=== PATIENT | female | born 1995 | race Caucasian/White ===

== ENCOUNTER 2016-12-02 23:13 | Emergency (ER) | payer BC ==
[~2016-12-02] VITALS: Ht 175.3 cm; Wt 65.9 kg
[2016-12-02 23:21] VITALS: TEMP 37.1; Ht 175.3 cm; Wt 65.9 kg
[2016-12-02] MEDS ORDERED: SODIUM CHLORIDE 0.9% 1000ML 1,000 ML IV STA (23:35)
[2016-12-02] MEDS ORDERED: SERT-234 PO (23:41)
[2016-12-02] MEDS ORDERED: CRY28 PO (23:41)
[2016-12-02] MEDS ORDERED: PANTOprazole INJ 40 MG in SYRINGE 0 ML IV ONE (23:45)
[2016-12-02] MEDS ORDERED: GI COCKTAIL PO ONE (23:45)
[2016-12-03] MEDS ORDERED: ALUMINUM/MAGNESIUM SUSP 30 ML UDC ONE
[2016-12-03] MEDS ORDERED: LIDOCAINE HCL 2% VISC SOLN 20 ML UDC ONE
[2016-12-03 00:16] LABS: BASO % 0.4 %; BASO ABS # 0.04 K/uL (0-0.2); COMPLETE YES; EOS % 2.3 %; HEMATOCRIT 41.1 % (37-47); IG% 0.2 %; LYMPH % 29.4 %; LYMPH ABS # 2.69 K/uL (1.2-3.4); MEAN CELL VOLUME 89.3 fL (80-100); MEAN CORPUSCULAR HEMOGLOBIN 30.9 pg (25-34); MEAN CORPUSCULAR HGB CONC 34.5 g/dl (32-36); MEAN PLATELET VOLUME 10.4 fL (7.4-10.4); MONO % 8.3 %; NEUT % 59.4 %; PLATELET COUNT 247 K/uL (130-400); WHITE BLOOD COUNT 9.16 K/uL (4.8-10.8)
[2016-12-03 00:30] LABS: URINE APPEARANCE CLOUDY (CLEAR); URINE BILIRUBIN NEG (NEG); URINE COLOR YELLOW; URINE NITRITE NEG (NEG); URINE PH 7.5 (4.5-7.5); URINE SPECIFIC GRAVITY 1.016 (1.000-1.030); UROBILINOGEN NEG (NEG); ZZUR CULT IF INDIC CLEAN CATCH NO
[2016-12-03 00:30] LABS: CALCIUM 9.4 mg/dl (8.5-10.1); CREATININE 0.92 mg/dl (0.60-1.20); POTASSIUM 3.8 mmol/L (3.5-5.1)
[2016-12-03 00:31] LABS: MANUAL MICROSCOPIC REQUIRED? NO; REVIEW REQ? NO
[2016-12-03] MEDS ORDERED: SODIUM CHLORIDE 0.9% 1000ML 1,000 ML IV STA (00:38)
[2016-12-03] MEDS ORDERED: OPTIRAY 320 IV PRN (01:00)
[2016-12-03 02:10] VITALS: BP 122/70; PULSE 82; O2SAT 99
[2016-12-03] MEDS ORDERED: HYDR-5688 PO (02:25)
--- NOTE | 2016-12-03 02:28 | EMERGENCY ROOM VISIT NOTE ---
History First contact with patient: 23:27 Chief Complaint: ABDOMINAL PAIN Stated Complaint: ABD PAIN Nursing Triage Summary: c/o mid upper abdominal pain for 3+ days. Pain increases with deep breaths & movement. Denies any nausea, vomitting or diarrhea. Reports last BM was 12/02 and was regular. Rates pain #4-5 at this time. History of Present Illness The patient is a 21 year old female who presents to the Emergency Department by private vehicle for evaluation of her epigastric abdominal discomfort. She reports that she noticed the pain started on Friday evening while bowling and shortly after eating pizza. She doesn't to drinking alcohol this weekend, but she does not feel like it was more than usual. She reports associated nausea but no vomiting. Her pain is independent of food products. She is had a decreased appetite secondary to discomfort. She reports pain with movement as well as palpation and deep inspiration. She reports no history of similar symptoms. The patient only takes oral contraception. She rates her current discomfort as a 6/10. She is tried nothing [id number] for her symptoms. She denies any fevers, chills, headaches, dizziness, light headedness, chest pain, palpitations, shortness of breath, hemoptysis, lower abdominal pain, hematochezia, melena, hematuria, or dysuria. She denies any chance for . Review of Systems A complete 10-point Review of Systems was discussed with the patient, with pertinent positives and negatives listed in the History of Present Illness. All remaining Review of Systems questions can be considered negative unless otherwise specified. Social History Smoking Status: Never Smoker Smokeless Tobacco Use: No Alcohol Use: occasionally Drug Use: none Marital Status: single Housing Status: lives with roommate Occupation Status: [employer] Current/Historical Medications Scheduled Ethinyl Estradiol/Norgestrel ([place]-28), 1 TAB PO DAILY Sertraline (Zoloft), 150 MG PO DAILY Scheduled PRN Hydrocodone/Acetaminophen 5MG/325MG ([place] 5MG/325MG), 1-2 TABLET PO Q4H PRN for Pain Allergies Coded Allergies: No Known Allergies (Unverified , 12/02/16) Physical Exam Vital Signs Date Time Temp Pulse Resp B/P Pulse Ox O2 Delivery O2 Flow Rate FiO2 12/03/16 02:10 82 18 122/70 99 Room Air 12/02/16 23:21 37.1 92 18 121/81 98 Room Air Pain Rating (0-10): 6 Physical Exam VITAL SIGNS - Vital signs and nursing notes were reviewed. GENERAL - 21-year-old female appearing her stated age who is in no acute distress. Communicates well with provider and answers questions appropriately. LUNGS - Chest wall symmetric without accessory muscle use, intercostals retractions, or central cyanosis. Normal vesicular breath sounds CTA B/L. No wheezes, rales, or rhonchi appreciated. CARDIAC - RRR with S1/S2. No murmur, rubs, or gallops appreciated. ABDOMEN - Abdominal contour flat and without pulsations or visible masses. BS normoactive all four quadrants. Mild tenderness to palpation appreciated in the epigastrium. No guarding. No Rebound Tenderness. Negative Rovsing's. Negative Foster's. No palpable masses, hepatosplenomegaly, or ascites noted. EXTREMITIES - No clubbing or peripheral cyanosis. No pretibial edema present. +3 /5 radial and dorsalis pedis pulses palpated throughout. PSYCH - A&Ox3 and cooperates fully with examiner. Pt is very pleasant and interacts well with examiner. Medical Decision & Procedures ER Provider Diagnostic Interpretation: Radiological imaging and reports were reviewed by myself. Radiologist's Interpretation per [facility] as follows: CT ABDOMEN & PELVIS: Possibly trace peripancreatic stranding. Correlate with amylase or lipase values. No pseudocyst. No radiodense gallstones. Appendix not identified. Small amount of fluid in the pelvis. Small nodule in the left lung base. US RUQ: Under distended/contracted gallbladder with apparent thickening of the wall. No gallstones. No biliary ductal dilatation. Negative sonographic Foster sign Limited visualization of the pancreas. Laboratory Results 12/02/16 23:55 Red Blood Count 4.60, Mean Corpuscular Volume 89.3, Mean Corpuscular Hemoglobin 30.9, Mean Corpuscular Hemoglobin Concent 34.5, Mean Platelet Volume 10.4, Neutrophils (%) (Auto) 59.4, Lymphocytes (%) (Auto) 29.4, Monocytes (%) (Auto) 8.3, Eosinophils (%) (Auto) 2.3, Basophils (%) (Auto) 0.4, Neutrophils # (Auto) 5.44, Lymphocytes # (Auto) 2.69, Monocytes # (Auto) 0.76, Eosinophils # (Auto) 0.21, Basophils # (Auto) 0.04 12/02/16 23:55 Test 12/02/16 23:55 12/03/16 00:14 White Blood Count 9.16 K/uL (4.8-10.8) Red Blood Count 4.60 M/uL (4.2-5.4) Hemoglobin 14.2 g/dL (12.0-16.0) Hematocrit 41.1 % (37-47) Mean Corpuscular Volume 89.3 fL (80-100) Mean Corpuscular Hemoglobin 30.9 pg (25-34) Mean Corpuscular Hemoglobin Concent 34.5 g/dl (32-36) Platelet Count 247 K/uL (130-400) Mean Platelet Volume 10.4 fL (7.4-10.4) Neutrophils (%) (Auto) 59.4 % Lymphocytes (%) (Auto) 29.4 % Monocytes (%) (Auto) 8.3 % Eosinophils (%) (Auto) 2.3 % Basophils (%) (Auto) 0.4 % Neutrophils # (Auto) 5.44 K/uL (1.4-6.5) Lymphocytes # (Auto) 2.69 K/uL (1.2-3.4) Monocytes # (Auto) 0.76 K/uL (0.11-0.59) Eosinophils # (Auto) 0.21 K/uL (0-0.5) Basophils # (Auto) 0.04 K/uL (0-0.2) RDW Standard Deviation 45.7 fL (36.4-46.3) RDW Coefficient of Variation 14.0 % (11.5-14.5) Immature Granulocyte % (Auto) 0.2 % Immature Granulocyte # (Auto) 0.02 K/uL (0.00-0.02) Anion Gap 4.0 mmol/L (3-11) Est Creatinine Clear Calc Drug Dose 98.9 ml/min Estimated GFR () 101.7 Estimated GFR (Non- 87.8 BUN/Creatinine Ratio 18.0 (10-20) Calcium Level 9.4 mg/dl (8.5-10.1) Magnesium Level 2.0 mg/dl (1.8-2.4) Total Bilirubin 0.2 mg/dl (0.2-1) Aspartate Amino Transf (AST/SGOT) 21 U/L (15-37) Alanine Aminotransferase (ALT/SGPT) 14 U/L (12-78) Alkaline Phosphatase 84 U/L (45-117) Total Protein 7.1 gm/dl (6.4-8.2) Albumin 3.6 gm/dl (3.4-5.0) Globulin 3.5 gm/dl (2.5-4.0) Albumin/Globulin Ratio 1.0 (0.9-2) Lipase 8077 U/L (73-393) Urine Color YELLOW Urine Appearance CLOUDY (CLEAR) Urine pH 7.5 (4.5-7.5) Urine Specific [place] 1.016 (1.000-1.030) Urine Protein NEG (NEG) Urine Glucose (UA) NEG (NEG) Urine Ketones NEG (NEG) Urine Occult Blood NEG (NEG) Urine Nitrite NEG (NEG) Urine Bilirubin NEG (NEG) Urine Urobilinogen NEG (NEG) Urine Leukocyte Esterase NEG (NEG) Urine WBC (Auto) 1-5 /hpf (0-5) Urine RBC (Auto) 0-4 /hpf (0-4) Urine Hyaline Casts (Auto) 0 /lpf (0-5) Urine Epithelial Cells (Auto) 10-20 /lpf (0-5) Urine Bacteria (Auto) NEG (NEG) Medications Administered Medications (Trade) Dose Ordered Sig/[place] Route Start Time Stop Time Status Last Admin Dose Admin Sodium Chloride 1,000 ml @ 999 mls/hr Q1H1M STAT IV 12/02/16 23:35 12/03/16 00:35 DC 12/03/16 00:11 999 MLS/HR Pantoprazole Sodium/Syringe (Protonix Inj/ Syringe) 10 ml @ 5 mls/min NOW ONCE IV 12/02/16 23:45 12/02/16 23:46 DC 12/03/16 00:08 5 MLS/MIN Lidocaine HCl (Viscous Lidocaine 2% Soln) 20 ml STK-MED ONCE .ROUTE 12/03/16 00:00 12/03/16 00:03 DC 12/03/16 00:07 20 ML Al Hydroxide/Mg Hydroxide 30 ml 30 ml STK-MED ONCE .ROUTE 12/03/16 00:00 12/03/16 00:03 DC 12/03/16 00:06 30 ML Sodium Chloride (Nss 1000ml) 1,000 ml @ 125 mls/hr Q8H STAT IV 12/03/16 00:38 12/03/16 02:52 DC 12/03/16 01:00 125 MLS/HR Acetaminophen/ Hydrocodone Bitart ([place] 5/325mg Home Pack) 1 [facility] UD ONCE PO 12/03/16 02:30 12/03/16 02:31 DC 12/03/16 02:35 1 HOMEPACK ED Course Patient was seen and evaluated by myself. Labs were drawn, saline lock in place. The patient was hydrated with a 1000 mL normal saline bolus. She was treated with IV Protonix as well as a GI cocktail. Laboratory results demonstrate no acute leukocytosis, worrisome anemia, or bandemia. The patient has no significant electrolyte abnormalities. There is no acute hepatitis. Lipase was found to be significantly elevated at 8077. Urinalysis is otherwise unremarkable. The patient was hydrated with an additional 1000 mL of normal saline. The patient was reevaluated and resting comfortably. Ultrasound of the gallbladder area and CT of the abdomen and pelvis was obtained. Imaging results above. Laboratory results and imaging studies were reviewed with the patient who acknowledges understanding. The case was discussed with my attending physician who agrees with the diagnostic approach and treatment plan. The patient was offered admission versus outpatient management with close follow-up with GI. She declines admission at this time. I did speak with case management who work on establishing the patient in outpatient appointment with gastroenterology. The patient was educated on a clear liquid diet. She was provided [place] for breakthrough pain at home. She was educated on worrisome symptoms for return visit to the emergency department. Patient discharged home afebrile and in good condition. Medical Decision Given the patient's presentation and stated complaints, I did elect to perform the above-mentioned workup. The patient presents today with epigastric abdominal discomfort. She has no fever leukocytosis. She has minimal tenderness to palpation in the epigastrium. Her labs are unremarkable except for an elevated lipase level. Because of this, I did proceed with imaging studies to rule out possible biliary ductal stone or other acute pathology contributing to her symptomatology. Imaging studies confirm pancreatitis with no other significant findings. The patient was copiously hydrated the emergency setting. She declines anything for pain. Patient declines admission and would rather follow closely with gastroenterology. I feel that given the patient's benign presentation and unremarkable exam, this certainly is an appropriate option. She was provided [place] for breakthrough pain. Case management work on establishing a follow-up appointment with gastroenterology. The patient was educated on worrisome symptoms for return visit to the emergency department. Patient discharged home afebrile and in good condition. In the evaluation and treatment of this patient, the following differential diagnoses were considered: Gastritis, alcoholic gastritis, gastroenteritis, duodenitis, PUD, retrocecal appendicitis, basilar PE, basilar pneumonia, ACS, [place] , amongst others. Impression Primary Impression: Pancreatitis Departure Information Dispostion Home / Self-Care Condition GOOD Prescriptions Hydrocodone/Acetaminophen 5MG/325MG ([place] 5MG/325MG) Tab 1-2 TABLET PO Q4H Y for Pain, #24 TAB For Initial Treatment Prov: Macario Raines PA-C 12/03/16 Referrals No Doctor, Assigned (PCP) Patient Instructions ED Diet Clear Liquid, ED Pancreatitis, [facility] Additional Instructions You have been treated in the Emergency Department your Abdominal Pain - Pancreatitis. You NEED to follow-up with gastroenterology for ongoing management of your pancreatitis. Exercise a clear liquid diet as discussed. You have been prescribed [place] to be used for pain control. This is a narcotic medication. You cannot drive or consume alcohol while on this medicine. This medicine should only be used for pain that cannot be controlled with over-the- counter pain medicines. For pain control, you can use the following ijxh-mxr-[id number] medicines (if >12 yo): - Regular strength (325mg/tab) Tylenol (acetaminophen) 2 tabs every 4-6 hours as needed. Do not exceed 12 tablets in a 24 hour period. Avoid taking more than 4 grams (4000 mg) of Tylenol per day. This includes any other sources of acetaminophen you may take on a regular basis. - Regular strength (200 mg/tab) Advil (ibuprofen) 1-2 tabs every 4-6 hours as needed. Do not exceed a dose of 3200 mg per day. Drink plenty of water and stay well hydrated. As with any trip to the Emergency Department, you should follow-up with your Primary Care Provider from today's visit. Return to the emergency department if your symptoms persist despite treatment plan outlined above or if the following symptoms occur: increased fevers, chills , worsening nausea/vomiting, blood in your stool or urine. Problem Qualifiers Primary Impression: Pancreatitis Chronicity: acute Pancreatitis type: unspecified pancreatitis type Acute pancreatitis complication: unspecified Qualified Codes: K85.90 - Acute pancreatitis without necrosis or infection, unspecified
[2016-12-03] MEDS ORDERED: NORCO 5/325MG HOME PACK PO ONE (02:30)
--- NOTE | 2016-12-03 07:07 | DIAGNOSTIC IMAGING REPORT ---
ABDOMEN AND PELVIS CT WITH IV CONTRAST CT DOSE: 287.79 mGy.cm HISTORY: Abdominal pain abd pain - pancreatitis TECHNIQUE: Multiaxial CT images of the abdomen and pelvis were performed following the use of intravenous contrast. COMPARISON STUDY: None. FINDINGS: Lung bases are clear. Gallbladder is moderately contracted. Liver is uniform throughout. Spleen is unremarkable. Slight degree of pancreatic edema with a trace amount of peripancreatic infiltrative change. No evidence for abscess or collection. Bowel pattern is nonobstructive. Small amount of free fluid within the pelvic cul-de-sac. This may be physiologic. IMPRESSION: Minimal pancreatitis. No evidence for abscess collection or obstruction. Electronically signed by: Amador Mendiola M.D. 12/03/2016 7:05 AM Dictated Date/Time: 12/03/2016 7:02 AM
--- NOTE | 2016-12-03 07:08 | DIAGNOSTIC IMAGING REPORT ---
Right upper quadrant ultrasound GALLBLADDER-ABD LIMITED CLINICAL HISTORY: abd pain - pancreatitis TECHNIQUE: Ultrasound COMPARISON STUDY: CT same date FINDINGS: Contracted gallbladder. No shadowing gallstones. The ductal system is normal in appearance. Poor visualization of the pancreas due to overlying bowel content. Liver is unremarkable. IMPRESSION: Poor visualization of the pancreas due to overlying bowel content. Contracted gallbladder. Otherwise negative study Electronically signed by: Amador Mendiola M.D. 12/03/2016 7:07 AM Dictated Date/Time: 12/03/2016 7:06 AM
[2016-12-24] MEDS ORDERED: VALA500T60 PO (14:52)
[2017-01-02] MEDS ORDERED: HYDR-5688 PO (08:36)
== END 2016-12-03 02:35 | disposition home or self-care (01) ==
LOC: C.EDB 23:14 → C.EDC 12-03 02:35
DX: K85.90 Acute pancreatitis without necrosis or infection, unspecified (principal)

== ENCOUNTER → 2016-12-09 | Outpatient (CLI) | payer BC ==
[~2016-12-09] MED LIST: CRY28 PO; HYDR-5688 PO; SERT-234 PO; VALA500T60 PO
[2016-12-09 17:19] LABS: BASO % 0.3 %; BASO ABS # 0.02 K/uL (0-0.2); COMPLETE YES; EOS % 1.5 %; HEMATOCRIT 41.7 % (37-47); IG% 0.1 %; LYMPH % 27.5 %; LYMPH ABS # 2.04 K/uL (1.2-3.4); MEAN CELL VOLUME 89.3 fL (80-100); MEAN CORPUSCULAR HGB CONC 34.8 g/dl (32-36); MEAN PLATELET VOLUME 10.5 fL (7.4-10.4); MONO % 6.6 %; PLATELET COUNT 287 K/uL (130-400); RED BLOOD COUNT 4.67 M/uL (4.2-5.4); WHITE BLOOD COUNT 7.42 K/uL (4.8-10.8)
[2016-12-09 17:31] LABS: ALT/SGPT 17 U/L (12-78); AMYLASE 151 U/L (25-115); AST/SGOT 16 U/L (15-37); BLOOD UREA NITROGEN 7 mg/dl (7-18); BUN/CREATININE RATIO 7.6 (10-20); CALCIUM 9.1 mg/dl (8.5-10.1); CARBON DIOXIDE 26 mmol/L (21-32); CHLORIDE 105 mmol/L (98-107); CREATININE 0.91 mg/dl (0.60-1.20); GLUCOSE 75 mg/dl (70-99); POTASSIUM 3.5 mmol/L (3.5-5.1); SODIUM 141 mmol/L (136-145)
[2016-12-09 17:34] LABS: ALB/GLOB RATIO 1.1 (0.9-2); ALKALINE PHOSPHATASE 77 U/L (45-117)
[2016-12-12 16:33] LABS: IGA SERUM 100 mg/dL (81-463); TIS TRANS IGA 1 U/mL (<4)
== END | disposition home or self-care (01) ==
LOC: C.LAB1850 16:06
PROVIDERS: ATTEND Registered Nurse
DX: K85.90 Acute pancreatitis without necrosis or infection, unspecified (principal); R11.0 Nausea

== ENCOUNTER → 2016-12-13 | Outpatient (CLI) | payer BC ==
[~2016-12-13] MED LIST changes: +SINCALIDE INJ 1.3 MCG in SODIUM CHLORIDE 0.9% 100ML 100 ML IV ONE
--- NOTE | 2016-12-13 13:40 | DIAGNOSTIC IMAGING REPORT ---
NUCLEAR HEPATOBILIARY SCAN WITH EJECTION FRACTION IMAGING CLINICAL HISTORY: Right upper quadrant abdominal pain. Pancreatitis. COMPARISON STUDY: Abdominal ultrasound dated 12/03/2016. TECHNIQUE: Dynamic images of the liver and anterior abdomen were obtained every 5 minutes for a total of 60 minutes following the IV administration of 5.3mCi of technetium 99m Choletec. 1.3 mcg of sincalide was then injected with additional images acquired every 5 minutes for 45 minutes to calculate the gallbladder ejection fraction. FINDINGS: The hepatobiliary scan shows prompt and homogeneous hepatic uptake. There is visualized activity within the intra and extrahepatic biliary tree at 10 minutes, and within the gallbladder at 20 minutes. There is normal biliary to bowel transit, with small bowel visualized by 20 minutes. On the sincalide imaging, the gallbladder ejection fraction was measured at 22%. IMPRESSION: 1. There is no scintigraphic evidence of cholecystitis. 2. The gallbladder ejection fraction measured 22% . Normal is considered greater than 35%, and this suggests gallbladder dysfunctional. Electronically signed by: Deshaun Strickland M.D. 12/13/2016 1:39 PM Dictated Date/Time: 12/13/2016 1:36 PM
== END | disposition home or self-care (01) ==
LOC: C.NUCL 10:15
PROVIDERS: ATTEND Registered Nurse
DX: K85.90 Acute pancreatitis without necrosis or infection, unspecified (principal); R10.13 Epigastric pain; R11.0 Nausea

== ENCOUNTER → 2016-12-16 | Outpatient (CLI) | payer BC ==
[~2016-12-16] MED LIST changes: -SINCALIDE INJ 1.3 MCG in SODIUM CHLORIDE 0.9% 100ML 100 ML IV ONE
[2016-12-16 16:24] LABS: ALKALINE PHOSPHATASE 70 U/L (45-117); ALT/SGPT 14 U/L (12-78); AMYLASE 142 U/L (25-115); AST/SGOT 18 U/L (15-37)
== END | disposition home or self-care (01) ==
LOC: C.LAB1850 14:45
PROVIDERS: ATTEND Registered Nurse
DX: K85.90 Acute pancreatitis without necrosis or infection, unspecified (principal)

== ENCOUNTER → 2016-12-23 | Outpatient (CLI) | payer BC | END | disposition home or self-care (01) | LOC: C.LAB1850 16:46 | PROVIDERS: ATTEND Registered Nurse | DX: K85.90 Acute pancreatitis without necrosis or infection, unspecified (principal); K82.8 Other specified diseases of gallbladder ==

== ENCOUNTER 2017-01-02 07:21 | Day surgery (SDC) | payer BC ==
[~2017-01-02] VITALS: Ht 175.3 cm; Wt 62.3 kg
[~2017-01-02 07:21] MED LIST changes: +CEFAZOLIN 2000 MG/60 ML D5W IV SCH; -HYDR-5688 PO; +LACTATED RINGER'S 1000ML 1,000 ML IV SCH
[2017-01-02 07:37] VITALS: BP 122/79; PULSE 102; TEMP 37.4; O2SAT 100; Ht 175.3 cm; Wt 62.3 kg
[2017-01-02] MEDS ORDERED: DEXAMETHASONE SOD INJ 4 MG/ML VIAL ONE (07:54)
[2017-01-02] MEDS ORDERED: GLYCOPYRROLATE INJ 0.2 MG/ML VIAL ONE (07:54)
[2017-01-02] MEDS ORDERED: PROPOFOL IV EMULSION 10 MG/ML 20 ML VIAL IV ONE (07:54)
[2017-01-02] MEDS ORDERED: PHENYLEPHRINE HCL INJ 10 MG/ML VIAL ONE ×2 (07:54→09:43)
[2017-01-02] MEDS ORDERED: MIDAZOLAM HCL 1 MG/ML 2ML VIAL ONE (07:54)
[2017-01-02] MEDS ORDERED: FENTANYL CITRATE INJ 50 MCG/1 ML 2 ML VIAL ONE ×2 (07:54→09:56)
[2017-01-02] MEDS ORDERED: ONDANSETRON INJ 2 MG/ML 2 ML VIAL ONE (07:54)
[2017-01-02] MEDS ORDERED: SUCCINYLCHOLINE CHLORIDE 20 MG/ML 10 ML VIAL IV ONE (07:54)
[2017-01-02] MEDS ORDERED: ROCURONIUM BROMIDE 10 MG/ML 5 ML VIAL ONE (07:54)
[2017-01-02] MEDS ORDERED: LIDOCAINE HCL 2% 2 ML VIAL (20MG/ML) ONE (07:54)
[2017-01-02] MEDS ORDERED: EpHEDrine SULFATE INJ 50 MG/ML AMP ONE (07:54)
[2017-01-02] MEDS ORDERED: NEOSTIGMINE METHYLSULFATE 5 MG/5 ML SYR ONE (07:54)
[2017-01-02 08:14] LABS: PREG INTERNAL NEGATIVE QC NEG CLEAR BACKGROUND; PREG INTERNAL POSITIVE QC POS CONTROL LINE
[2017-01-02] MEDS ORDERED: NURSING VERBAL MED ORDER ONE (08:15)
[2017-01-02] MEDS ORDERED: SCOPOLAMINE 1.5 MG TDSY TD ONE (08:16)
--- NOTE | 2017-01-02 08:35 | History & Physical Bridge Note ---
H&P Re-Evaluation Bridge Note: I have examined the patient, reviewed the History & Physical and in the interval since the performance of the History & Physical I have noted the following changes of clinical significance: No changes noted
[2017-01-02] MEDS ORDERED: HYDR-5688 PO (08:36)
--- NOTE | 2017-01-02 08:38 | Discharge Instructions ---
Discharge Instructions Date of Service Jan 02, 2017. Admission Reason for Admission: Biliary Dyskinesia Discharge Discharge Diagnosis / Problem: same Discharge Goals Goal(s): Decrease discomfort, Prevent Disease Progression Activity Recommendations Activity Limitations: as noted below Exercise/Sports Limitations: until after follow-up appointment May Resume Sexual Activity: after follow-up appointment Shower/Bathe: tomorrow . Instructions / Follow-Up Instructions / Follow-Up call [phone] for f/u appointment with dr. toure in 2 weeks or if you have any problems/questions. Current Hospital Diet Patient's current hospital diet: Discharge Diet Recommended Diet: Regular Diet Procedures Procedures Performed: lap sheyla Pending Studies Studies pending at discharge: yes List of pending studies: path report Medical Emergencies . Who to Call and When: Medical Emergencies: If at any time you feel your situation is an emergency, please call 911 immediately. . Non-Emergent Contact Non-Emergency issues call your: Primary Care Provider, Surgeon Call Non-Emergent contact if: temperature is above 101, wound has increased drainage, wound has increased redness, wound has increased pain . "Provider Documentation" section prepared by Daniel Toure. VTE Core Measure Inpt VTE Proph given/why not?: SCD's
[2017-01-02] MEDS ORDERED: BUPIVACAINE/EPINEPHRINE 0.5% MPF 1:200,000 30 ML VIAL ONE (08:51)
[2017-01-02] MEDS ORDERED: ATROPINE SULFATE 0.1 MG/ML 5ML SYR IV PRN (09:00)
[2017-01-02] MEDS ORDERED: FENTANYL CITRATE INJ 50 MCG/1 ML 2 ML VIAL IV PRN (09:00)
[2017-01-02] MEDS ORDERED: ONDANSETRON INJ 2 MG/ML 2 ML VIAL IV PRN ×2 (09:00→10:30)
[2017-01-02] MEDS ORDERED: EpHEDrine SULFATE INJ 50 MG/ML AMP IV PRN (09:00)
[2017-01-02] MEDS ORDERED: SODIUM CHLORIDE 0.9% 1000ML 1,000 ML IV SCH (10:19)
--- NOTE | 2017-01-02 10:21 | [facility] Operative Report ---
Operative Report Operative Date Jan 02, 2017. Pre-Operative Diagnosis biliary dyskinesia Post-Operative Diagnosis same Procedure(s) Performed lap sheyla Surgeon sharri Findings essentially normal appearing anatomy Specimens gallbladder Anesthesia get Complication(s) None Disposition Recovery Room / PACU I attest to the content of the Intraoperative Record and any orders documented therein. Any exceptions are noted below.
[2017-01-02] MEDS ORDERED: KETOROLAC TROMETHAMINE 30 MG/ML VIAL IV. PRN (10:30)
[2017-01-02] MEDS ORDERED: IBUPROFEN 600 MG TAB PO PRN (10:30)
[2017-01-02] MEDS ORDERED: HYDROCODONE/ACETAMOPHEN 5/325MG TAB PO PRN ×2 (10:30)
[2017-01-02 10:55] VITALS: BP 100/55; PULSE 82; TEMP 37.2; O2SAT 99
[2017-01-02 11:25] VITALS: BP 101/59; PULSE 77; O2SAT 97
[2017-01-02 11:55] VITALS: BP 102/66; PULSE 70; TEMP 37.1; O2SAT 97
[2017-01-02 12:00] VITALS: BP 108/63; PULSE 72; TEMP 37; O2SAT 97
--- NOTE | 2017-01-02 12:18 | OPERATIVE REPORT ---
DATE OF OPERATION: 01/02/2017 PREOPERATIVE DIAGNOSIS: Biliary dyskinesia. POSTOPERATIVE DIAGNOSIS: Same. PROCEDURE: Laparoscopic cholecystectomy. SURGEON: Dr. Toure. ESTIMATED BLOOD LOSS: Approximately 10 mL. COMPLICATIONS: No immediate. ANESTHESIA: General. The patient tolerated the procedure well. OPERATIVE NOTE: After informed consent was obtained, the patient was taken to the operating suite, placed in supine position. After successful intubation, the abdomen was sterilely prepped and draped in usual fashion. A periumbilical incision made with an 11 blade scalpel and carried down through the soft tissue using electrocautery. Anterior rectus fascia was opened using electrocautery and two #0 Vicryl stay sutures were placed. Peritoneum was elevated with hemostats and incised under direct vision. A finger sweep was performed. A 12 mm Griffin trocar was placed. The abdomen was insufflated to 18 mmHg. Laparoscope was inserted and the abdomen examined 360 degrees. A subxiphoid 5 mm port and 2 right upper quadrant 5 mm ports were placed under direct vision. The patient was placed in reverse Trendelenburg position slightly airplaned to the left. Her anatomy all looked normal. There was no hiatal hernia. Liver looked normal. Peritoneal surfaces did not show any endometriosis, etc. There was no evidence of any hernias. We did grasp the gallbladder and elevate it superiorly and laterally. A [place] dissector was used to open the peritoneal reflection of the neck of the gallbladder. I was then able to skeletonize the cystic duct. I clipped it twice proximally and once distally and transected it. In similar fashion, the cystic artery was identified, skeletonized, clipped and divided. The gallbladder was removed from the gallbladder fossa intact using an electrocautery. A couple of bleeding points in the gallbladder fossa were controlled using electrocautery. Irrigation was performed. At the end of the procedure, there was adequate hemostasis and no evidence of a bile leak, was placed into an EndoCatch bag and removed from the camera port site. Final look around the abdomen showed no other abnormalities. We removed all the trocars and desufflated the abdomen. The fascia of the camera port was closed using 0 Vicryl in a [id number]-[id number] fashion. All the wounds were irrigated and closed using 4-0 Monocryl. Marcaine was injected around the incisions for postoperative analgesia and skin glue used as a dressing. The patient was awakened, extubated, and transferred to recovery in stable condition. I attest to the content of the Intraoperative Record and any orders documented therein. Any exceptio ns are noted below.
[2017-01-02 12:30] VITALS: BP 103/59; PULSE 71; TEMP 37.1; O2SAT 97
--- NOTE | 2017-01-02 14:00 | Anesthesiology Progress Note ---
Anesthesia Post Op Note Date & Time Jan 02, 2017 at 14:01 Vital Signs Pain Intensity: 0 Vital Signs Past 12 Hours Date Time Temp Pulse Resp B/P Pulse Ox O2 Delivery O2 Flow Rate FiO2 01/02/17 11:25 77 18 101/59 97 Room Air 01/02/17 10:55 37.2 82 18 100/55 99 Room Air 01/02/17 10:50 36.6 88 16 115/74 98 Room Air 01/02/17 10:40 80 16 118/59 99 Room Air 01/02/17 10:30 83 16 120/67 99 Room Air 01/02/17 10:20 97 16 131/70 100 Mask 10 01/02/17 10:13 36.7 103 16 138/74 100 Mask 10 01/02/17 07:37 37.4 102 16 122/79 100 Room Air Notes Mental Status: alert / awake / arousable, participated in evaluation Pt Amnestic to Procedure: Yes Nausea / Vomiting: adequately controlled Pain: adequately controlled Airway Patency, RR, SpO2: stable & adequate BP & HR: stable & adequate Hydration State: stable & adequate Anesthetic Complications: no major complications apparent
== END 2017-01-02 13:00 | disposition home or self-care (01) ==
LOC: C.ACU 07:21
PROVIDERS: ATTEND Surgery
DX: K82.8 Other specified diseases of gallbladder (principal); K85.90 Acute pancreatitis without necrosis or infection, unspecified; Z82.3 Family history of stroke